=== PATIENT | male | born 1965 | race Caucasian/White ===

== ENCOUNTER 2020-09-24 19:44 | Inpatient (IN) | payer BC, OTHER ==
[~2020-09-24] VITALS: Ht 193 cm; Wt 227.2 kg
[~2020-09-24 19:44] MED LIST: AMLO10TA4; LISI40TA; NAPR-243 PO; TRM50T PO
[2020-09-24] MEDS ORDERED: LACTATED RINGERS 1,000 ML IV ONE ×3 (20:16→22:28)
[2020-09-24 20:19] LABS: ABG BASE EXCESS -1.6 MMOL/L (-2.5-2.5); ABG OXYGEN SATURATION 93 % (94-100); ABG PCO2 30 MMHG (35-45); ABG PH 7.47 (7.37-7.43); ABG PO2 77 MMHG (79-93)
[2020-09-24 20:20] LABS: ALLENS TEST YES-POS; INSPIRED O2 15L; PATIENT TEMP 102.7; VENTILATOR NO
--- NOTE | 2020-09-24 20:22 | ED Respiratory ---
General Chief Complaint: Respiratory Problems Stated Complaint: COVID-19;LOW O2 SAT Source: patient Exam Limitations: no limitations History of Present Illness Date Seen by Provider: Sep 24, 2020 Time Seen by Provider: 20:02 Initial Comments The patient presents to the ER by private conveyance from home with chief complaint of shortness of air and oxygen sats in the low 80s. He does not have a history of pulmonary disease nor does he ever smoke. He has no history of coronary disease or chest pain. No significant familial medical history. He does have diabetes on oral anti-hyperglycemics and hypertension but no evidence of anemia. He is known to Dr. Francis. He started having symptoms of shortness of air fever cough diarrhea body aches and loss of sense of taste and smell approximately 6 days ago. 4 days ago he was tested positive for COVID-19. He has no baseline supplemental oxygen requirements. Last stool was today large diarrhea. Allergies and Home Medications Allergies Coded Allergies: No Known Drug Allergies (Unverified Allergy, Mild, 08/09/09) Home Medications Naproxen 500 Mg Tablet, 1 EACH PO TID PRN FOR PAIN Prescribed by: BELA FERRERA on 08/09/09 1026 Tramadol Hcl 50 Mg Tablet, 1 TAB PO QID FOR PAIN Prescribed by: BELA FERRERA on 08/09/09 1026 Patient Home Medication List Home Medication List Reviewed: Yes Review of Systems Review of Systems Constitutional: chills, fever, malaise, weakness EENTM: No ear discharge, No ear pain Respiratory: cough; No phlegm; short of breath; No wheezing Cardiovascular: No chest pain, No edema, No Hx of Intervention, No palpitations Gastrointestinal: No abdominal pain, No constipation, No diarrhea, No nausea, No vomiting Genitourinary: No discharge, No dysuria; incontinence (physiologic due to shortness of air he has a hard time getting to the bathroom in time for the past week) Musculoskeletal: No back pain, No joint pain Skin: No change in color, No dryness Psychiatric/Neurological: Denies Anxiety, Denies Depressed All Other Systems Reviewed Negative Unless Noted: Yes Past Brnncvq-Cxefrs-Brlgoj Hx Patient Social History Alcohol Use: Denies Use Recreational Drug Use: No Smoking Status: Never a Smoker Physical Exam Vital Signs - First Documented 09/24/20 09/24/20 09/24/20 20:00 20:45 20:55 Temp 39.3 Pulse 107 Pulse Ox 97 O2 Delivery OxyMask O2 Flow Rate 15.00 Capillary Refill : Height: '" Weight: lbs. oz. kg; BMI Method: General Appearance: severe distress, obese Eyes: Bilateral Eye Normal Inspection, Bilateral Eye PERRL, Bilateral Eye EOMI HEENT: PERRL/EOMI, pharynx normal Neck: full range of motion, supple, normal inspection Respiratory: lungs clear, respiratory distress, decreased breath sounds, accessory muscle use Cardiovascular: normal peripheral pulses, regular rate, rhythm, tachycardia Gastrointestinal: normal bowel sounds, non tender, soft Extremities: normal range of motion, non-tender, normal capillary refill Neurologic/Psychiatric: alert, normal mood/affect, oriented x 3 Skin: normal color, other (psoriatic rashes throughout) Focused Exam Sepsis Stage: Severe Sepsis Possible Source: Pulmonary Lactate Level 09/24/20 20:25: Lactic Acid Level 2.29*H Time of Focused Exam: 21:30 Respiratory: Lungs Clear, No Accessory Muscle Use, Decreased Breath Sounds, Respiratory Distress (mild to moderate with oxygen saturations 98% on FiO2 of 0.7) Cardiovascular: Regular Rate, Rhythm, Normal Peripheral Pulses Capillary Refill: Less Than 3 Seconds Peripheral Pulses: 2+ Radial Pulses (R), 2+ Radial Pulses (L) Skin: warm/dry, other (baseline psoriatic plaques) Lactic Acid Level Laboratory Tests Test 09/24/20 20:25 Lactic Acid Level 2.29 MMOL/L (0.50-2.00) *H Within 3hrs of presentation: Admin fluids, Admin 30ml/kg IBW due to BMI>30 (gave between 10 and 20 mL/kg based on an adjusted ideal body weight 148 kg. Intentionally went below 20 mL/kg due to lack of evidence for bacterial pneumonia.), Admin ABX, Focus exam, Lactate level Progress/Results/Core Measures Suspected Sepsis SIRS Temperature: Pulse: Respiratory Rate: Laboratory Tests 09/24/20 20:25: White Blood Count 6.8 Blood Pressure / Mean: 09/24/20 20:25: Lactic Acid Level 2.29*H Laboratory Tests 09/24/20 20:25: Creatinine 1.14, INR Comment 1.0, Platelet Count 182, Total Bilirubin 0.5 Results/Orders Lab Results Laboratory Tests Test 09/24/20 20:08 09/24/20 20:25 Range/Units Blood Gas Puncture Site LEFT RADIAL Blood Gas Patient Temperature 102.7 Arterial Blood pH 7.47 H 7.37-7.43 Arterial Blood Partial Pressure CO2 30 L 35-45 MMHG Arterial Blood Partial Pressure O2 77 L 79-93 MMHG Arterial Blood HCO3 21 L 23-27 MMOL/L Arterial Blood Total CO2 22.0 21.0-31.0 MMOL/L Arterial Blood Oxygen Saturation 93 L 94-100 % Arterial Blood Base Excess -1.6 -2.5-2.5 MMOL/L Rashad Test YES-POS Blood Gas Ventilator Setting NO Blood Gas Inspired Oxygen 15L White Blood Count 6.8 4.3-11.0 10^3/uL Red Blood Count 5.08 4.30-5.52 10^6/uL Hemoglobin 14.0 13.3-17.7 g/dL Hematocrit 41 40-54 % Mean Corpuscular Volume 82 80-99 fL Mean Corpuscular Hemoglobin 28 25-34 pg Mean Corpuscular Hemoglobin Concent 34 32-36 g/dL Red Cell Distribution Width 14.4 10.0-14.5 % Platelet Count 182 130-400 10^3/uL Mean Platelet Volume 10.5 9.0-12.2 fL Immature Granulocyte % (Auto) 2 % Neutrophils (%) (Auto) 81 H 42-75 % Lymphocytes (%) (Auto) 11 L 12-44 % Monocytes (%) (Auto) 6 0-12 % Eosinophils (%) (Auto) 0 0-10 % Basophils (%) (Auto) 0 0-10 % Neutrophils # (Auto) 5.5 1.8-7.8 10^3/uL Lymphocytes # (Auto) 0.7 L 1.0-4.0 10^3/uL Monocytes # (Auto) 0.4 0.0-1.0 10^3/uL Eosinophils # (Auto) 0.0 0.0-0.3 10^3/uL Basophils # (Auto) 0.0 0.0-0.1 10^3/uL Immature Granulocyte # (Auto) 0.1 0.0-0.1 10^3/uL Prothrombin Time 13.8 12.2-14.7 SEC INR Comment 1.0 0.8-1.4 Activated Partial Thromboplast Time 35 24-35 SEC D-Dimer 0.83 H 0.00-0.49 UG/ML Sodium Level 128 L 135-145 MMOL/L Potassium Level 3.6 3.6-5.0 MMOL/L Chloride Level 92 L 98-107 MMOL/L Carbon Dioxide Level 22 21-32 MMOL/L Anion Gap 14 5-14 MMOL/L Blood Urea Nitrogen 13 7-18 MG/DL Creatinine 1.14 0.60-1.30 MG/DL Estimat Glomerular Filtration Rate > 60 BUN/Creatinine Ratio 11 Glucose Level 203 H 70-105 MG/DL Lactic Acid Level 2.29 *H 0.50-2.00 MMOL/L Calcium Level 7.8 L 8.5-10.1 MG/DL Corrected Calcium 8.2 L 8.5-10.1 MG/DL Total Bilirubin 0.5 0.1-1.0 MG/DL Aspartate Amino Transf (AST/SGOT) 38 H 5-34 U/L Alanine Aminotransferase (ALT/SGPT) 28 0-55 U/L Alkaline Phosphatase 36 L 40-136 U/L C-Reactive Protein High Sensitivity 14.83 H 0.00-0.50 MG/DL Total Protein 7.6 6.4-8.2 GM/DL Albumin 3.5 3.2-4.5 GM/DL Procalcitonin 0.15 H <0.10 NG/ML Micro Results Microbiology 09/24/20 Influenza Types A,B Antigen (ISABEL) - Final, Complete My Orders Orders - YESSY MATTHEW Arterial Blood Gas (09/24/20 20:11) Cbc With Automated Diff (09/24/20 20:16) Comprehensive Metabolic Panel (09/24/20 20:16) Blood Culture (09/24/20 20:16) Sputum Culture (09/24/20 20:16) Urinalysis (09/24/20 20:16) Urine Culture (09/24/20 20:16) Protime With Inr (09/24/20 20:16) Partial Thromboplastin Time (09/24/20 20:16) Chest 1 View, Ap/Pa Only (09/24/20 20:16) Ed Iv/Invasive Line Start (09/24/20 20:16) Ed Iv/Invasive Line Start (09/24/20 20:16) Vital Signs Adult Sepsis Patie Q15M (09/24/20 20:16) O2 (09/24/20 20:16) Remove Rings In Anticipation O (09/24/20 20:16) Lactic Acid Analyzer (09/24/20 20:16) Influenza A And B Antigens (09/24/20 20:16) Lactated Ringers (Lr 1000 Ml Iv Solution (09/24/20 20:16) Ed Iv/Invasive Line Start (09/24/20 20:16) Lactated Ringers (Lr 1000 Ml Iv Solution (09/24/20 20:16) Acetaminophen Tablet (Tylenol Tablet) (09/24/20 20:30) Covid-19 External Lab Results (09/24/20 20:16) Procalcitonin (Pct) (09/24/20 20:22) Hs C Reactive Protein (09/24/20 20:22) Fibrin Degradation Products (09/24/20 20:22) Dexamethasone Injection (Decadron Injec (09/24/20 20:30) Medications Given in ED Current Medications Medications Dose Ordered Sig/Raffaele Route Start Time Stop Time Status Last Admin Dose Admin Acetaminophen 1,000 mg ONCE ONCE PO 09/24/20 20:30 09/24/20 20:31 DC 09/24/20 20:34 1,000 MG Dexamethasone Sodium Phosphate 10 mg ONCE ONCE IV 09/24/20 20:30 09/24/20 20:31 DC 09/24/20 20:34 10 MG Lactated Ringer's 1,000 ml @ 0 mls/hr Q0M ONCE IV 09/24/20 20:16 09/24/20 20:20 DC 09/24/20 20:34 999 MLS/HR Lactated Ringer's 1,000 ml @ 0 mls/hr Q0M ONCE IV 09/24/20 20:16 09/24/20 20:20 DC 09/24/20 20:34 999 MLS/HR Vital Signs/I&O 09/24/20 09/24/20 09/24/20 20:00 20:45 20:55 Temp 39.3 Pulse 107 B/P (MAP) Pulse Ox 97 97 O2 Delivery OxyMask NIV CPAP O2 Flow Rate 15.00 60.00 Capillary Refill : Progress Note #1: Time: 20:21 Progress Note Immediately on arrival he had evidence of shortness of air and increased work of breathing and an oxygen saturation of 70% on room air. Putting him on a simple mask at flush brought him up to 95-96% and improved his work of breathing. We'll get an ABG which will help guide if CPAP or BiPAP will be helpful. Based on an adjusted ideal body weight of 148 kg with a stated weight of 530 pounds and 6 foot 4 we would give him 2 L of lactated Ringer's to start. If he does not have evidence of bacterial infection then it would be ideal not to overload him with fluids and this would be between 10 and 20 milliliters per kilogram. Plan to get a d-dimer and put him on prophylactic Lovenox if his kidney function is okay. Plan to get a pro calcitonin and CRP to help us decide if this looks bacterial. We will obtain influenza swab, chest x-ray and otherwise septic workup with modified IV fluids for reasons stated above. Unless we find evidence of bacterial infection we will not treat him with antibiotics. Progress Note #2: Time: 21:31 Progress Note Elevated markers of inflammation but no significant white count. Plan to hold IV antibiotics for now. Diagnostic Imaging Diagonstic Imaging: Xray Plain Films/CT/US/NM/MRI: chest (1v) Comments bilateral patchy infiltrates consistent with viral COVID-19 pneumonia. [facility] [place], [place] NAME: SARAH ZELAYA [facility] REC#: [id number] PT STATUS: REG ER : 1965 PHYSICIAN: YESSY MATTHEW MD ADMIT DATE: 09/24/20/ER Draft Date of Exam:09/24/20 CHEST 1 VIEW, AP/PA ONLY INDICATION: COVID positive, low oxygen saturation, sepsis. TECHNIQUE: Single view chest 8:30 PM. CORRELATION STUDY: None FINDINGS: Heart size is enlarged, mediastinum is prominent. Prominent bilateral pulmonary opacities are present most compatible with likely multilobe pneumonia. Edema could also account for this. Findings appear most pronounced in the mid and lower lung hutchinson. IMPRESSION: 1. Bilateral pulmonary opacities favor likely multilobe pneumonia including that seen with COVID. Dictated on workstation # [id number] Dict: 09/24/202045 Trans: 09/24/202101 [facility] [id number] Interpreted by: YOSEPH,PILAR K DO Electronically signed by: Reviewed: Reviewed by Me Departure Communication (Admissions) Time/Spoke to Admitting Phy: 21:20 Patient case discussed with Dr. Granado and she agrees to admit him to the ICU on CPAP, steroids and Lovenox. Impression Primary Impression: Severe acute respiratory syndrome coronavirus 2 (SARS-CoV-2) detected Additional Impressions: Acute respiratory failure with hypoxemia Severe sepsis Disposition: ADMITTED INPATIENT Condition: Stable Admissions Decision to Admit Reason: Admit from ER (General) Decision to Admit/Date: Sep 24, 2020 Time/Decision to Admit Time: 20:00 Departure-Patient Inst. Referrals: NO,LOCAL PHYSICIAN (PCP/Family) Primary Care Physician YESSY MATTHEW Sep 24, 2020 20:22
[2020-09-24] MEDS ORDERED: ACETAMINOPHEN 500 MG TAB (TYLENOL) PO ONE (20:30)
[2020-09-24 20:37] LABS: BASOPHILS % (AUTO) 0 % (0-10); EOSINOPHILS % (AUTO) 0 % (0-10); HEMATOCRIT 41 % (40-54); LYMPHOCYTES # (AUTO) 0.7 10^3/uL (1.0-4.0); LYMPHOCYTES % (AUTO) 11 % (12-44); MEAN CORPUSCULAR HEMOGLOBIN 28 pg (25-34); MEAN CORPUSCULAR HGB CONC 34 g/dL (32-36); MEAN CORPUSCULAR VOLUME 82 fL (80-99); MEAN PLATELET VOLUME 10.5 fL (9.0-12.2); MONOCYTES # (AUTO) 0.4 10^3/uL (0.0-1.0); MONOCYTES % (AUTO) 6 % (0-12); NEUTROPHILS # (AUTO) 5.5 10^3/uL (1.8-7.8); NEUTROPHILS % (AUTO) 81 % (42-75); PLATELET COUNT 182 10^3/uL (130-400); WHITE BLOOD COUNT 6.8 10^3/uL (4.3-11.0)
[2020-09-24 20:51] LABS: ALBUMIN 3.5 GM/DL (3.2-4.5); CHLORIDE 92 MMOL/L (98-107); POTASSIUM 3.6 MMOL/L (3.6-5.0); SODIUM 128 MMOL/L (135-145)
[2020-09-24 20:53] LABS: CALCIUM 7.8 MG/DL (8.5-10.1)
[2020-09-24 20:54] LABS: FIBRIN DEGRADATION PRODUCTS 0.83 UG/ML (0.00-0.49); GLUCOSE 203 MG/DL (70-105); PROTHROMBIN TIME PATIENT 13.8 SEC (12.2-14.7); TOTAL PROTEIN 7.6 GM/DL (6.4-8.2)
[2020-09-24 20:55] LABS: CARBON DIOXIDE 22 MMOL/L (21-32)
[2020-09-24 20:56] LABS: BILIRUBIN,TOTAL 0.5 MG/DL (0.1-1.0)
[2020-09-24 20:57] LABS: ALKALINE PHOSPHATASE 36 U/L (40-136)
[2020-09-24 20:58] LABS: CREATININE SERUM 1.14 MG/DL (0.60-1.30); GFR ESTIMATED > 60
[2020-09-24 20:59] LABS: BUN/CREATININE RATIO 11
[2020-09-24 21:01] LABS: ALANINE AMINOTRANSFERASE 28 U/L (0-55)
--- NOTE | 2020-09-24 21:02 | Diagnostic Imaging Report ---
INDICATION: COVID positive, low oxygen saturation, sepsis. TECHNIQUE: Single view chest 8:30 PM. CORRELATION STUDY: None FINDINGS: Heart size is enlarged, mediastinum is prominent. Prominent bilateral pulmonary opacities are present most compatible with likely multilobe pneumonia. Edema could also account for this. Findings appear most pronounced in the mid and lower lung hutchinson. IMPRESSION: 1. Bilateral pulmonary opacities favor likely multilobe pneumonia including that seen with COVID. Dictated by: Dictated on workstation # [id number]
[2020-09-24] MEDS ORDERED: ACETAMINOPHEN 500 MG TAB (TYLENOL) PO PRN (23:00)
[2020-09-24] MEDS ORDERED: LACTATED RINGERS 1,000 ML IV SCH (23:00)
[2020-09-24] MEDS ORDERED: ONDANSETRON 4 MG/2 ML (SDV) Z0FRAN IV PRN (23:00)
[2020-09-24] MEDS ORDERED: IBUPROFEN 800 MG (MOTRIN) TAB PO PRN (23:00)
[2020-09-24 23:03] VITALS: BP 121/69
[2020-09-24] MEDS ORDERED: VASOPRESSIN 20 UNITS/NS 100 ML DRIP IV SCH ×2 (23:15)
[2020-09-24] MEDS ORDERED: RT-ALBUTEROL INHALER HFA (VENTOLIN HFA) 18 GM IH PRN (23:15)
[2020-09-24] MEDS: EPINEPHrine 1 MG INJECTION 4 MG in NS (IVPB) 246 ML IV SCH (23:16)
[2020-09-24] MEDS: NOREPINEPHRINE 4 MG/250 ML 250 ML IV SCH (23:16)
[2020-09-24 23:19] LABS: ABG BASE EXCESS -0.7 MMOL/L (-2.5-2.5); ABG OXYGEN SATURATION 98 % (94-100); ABG PCO2 33 MMHG (35-45); ABG PH 7.45 (7.37-7.43); ABG PO2 111 MMHG (79-93); ABG TCO2 23.8 MMOL/L (21.0-31.0)
[2020-09-24 23:20] LABS: ALLENS TEST YES-POS; INSPIRED O2 60%; VENTILATOR NO
[2020-09-25] MEDS: RT-ALBUTEROL INHALER HFA (VENTOLIN HFA) 18 GM IH SCH ×3 (02:12→19:42)
[2020-09-25] MEDS: EPINEPHrine 1 MG INJECTION 4 MG in NS (IVPB) 246 ML IV SCH ×8 (02:26→23:40)
[2020-09-25] MEDS: NOREPINEPHRINE 4 MG/250 ML 250 ML IV SCH ×8 (02:26→23:40)
[2020-09-25 03:18] LABS: BASOPHILS % (AUTO) 0 % (0-10); EOSINOPHILS % (AUTO) 0 % (0-10); HEMATOCRIT 42 % (40-54); HEMOGLOBIN 13.7 g/dL (13.3-17.7); LYMPHOCYTES # (AUTO) 0.5 10^3/uL (1.0-4.0); LYMPHOCYTES % (AUTO) 7 % (12-44); MEAN CORPUSCULAR HEMOGLOBIN 27 pg (25-34); MEAN CORPUSCULAR HGB CONC 33 g/dL (32-36); MEAN CORPUSCULAR VOLUME 82 fL (80-99); MEAN PLATELET VOLUME 10.8 fL (9.0-12.2); MONOCYTES # (AUTO) 0.4 10^3/uL (0.0-1.0); MONOCYTES % (AUTO) 5 % (0-12); NEUTROPHILS % (AUTO) 87 % (42-75); PLATELET COUNT 158 10^3/uL (130-400)
[2020-09-25 03:30] LABS: ALBUMIN 3.2 GM/DL (3.2-4.5)
[2020-09-25 03:31] LABS: CHLORIDE 99 MMOL/L (98-107); POTASSIUM 4.3 MMOL/L (3.6-5.0); SODIUM 128 MMOL/L (135-145)
[2020-09-25 03:32] LABS: CALCIUM 7.8 MG/DL (8.5-10.1)
[2020-09-25 03:33] LABS: GLUCOSE 252 MG/DL (70-105); TOTAL PROTEIN 7.4 GM/DL (6.4-8.2)
[2020-09-25 03:34] LABS: CARBON DIOXIDE 16 MMOL/L (21-32)
[2020-09-25 03:35] LABS: BILIRUBIN,TOTAL 0.3 MG/DL (0.1-1.0)
[2020-09-25 03:36] LABS: ALKALINE PHOSPHATASE 35 U/L (40-136)
[2020-09-25 03:37] LABS: CREATININE SERUM 0.93 MG/DL (0.60-1.30); GFR ESTIMATED > 60
[2020-09-25 03:38] LABS: BUN/CREATININE RATIO 14
[2020-09-25 03:40] LABS: ALANINE AMINOTRANSFERASE 28 U/L (0-55); MAGNESIUM 2.1 MG/DL (1.6-2.4)
--- NOTE | 2020-09-25 04:12 | Pulmonary Consultation ---
History of Present Illness History of Present Illness Date Seen by Provider: Sep 25, 2020 Time Seen by Provider: 04:07 Date of Admission History of Present Illness The patient presents to the ER by private conveyance from home with chief complaint of shortness of air and oxygen sats in the low 80s. He does not have a history of pulmonary disease nor does he ever smoke. He has no history of coronary disease or chest pain. No significant familial medical history. He does have diabetes on oral anti-hyperglycemics and hypertension but no evidence of anemia. He is known to Dr. Francis. He started having symptoms of shortness of air fever cough diarrhea body aches and loss of sense of taste and smell approximately 6 days ago. 4 days ago he was tested positive for COVID-19. He has no baseline supplemental oxygen requirements. Last stool was today large diarrhea. Allergies and Home Medications Allergies Coded Allergies: No Known Drug Allergies (Unverified , 08/09/09) Home Medications Naproxen 500 Mg Tablet, 1 EACH PO TID PRN FOR PAIN Prescribed by: BELA FERRERA on 08/09/09 1026 Tramadol Hcl 50 Mg Tablet, 1 TAB PO QID FOR PAIN Prescribed by: BELA FERRREA on 08/09/09 1026 Past Trwzjij-Cszlft-Qckaku Hx Patient Social History Alcohol Use: Denies Use Recreational Drug Use: No Smoking Status: Never a Smoker Recent Foreign Travel: No Contact w/Someone Who Travel: No Recent Infectious Disease Expo: Yes Immunizations Up To Date Date of Influenza Vaccine: Aug 08, 2019 Past Medical History Respiratory: No Cardiac: Yes Hypertension Neurological: No Genitourinary: No Gastrointestinal: No Musculoskeletal: No Endocrine: Yes (MORBID OBESITY) Diabetes, Non-Insulin dep Cancer: No Psychosocial: No Integumentary: No Sepsis Event Evaluation Height, Weight, BMI Height: '" Weight: lbs. oz. kg; 58.22 BMI Method: Exam Exam Vital Signs Date Time Temp Pulse Resp B/P (MAP) Pulse Ox O2 Delivery O2 Flow Rate FiO2 09/25/20 02:12 62 93 60.00 09/24/20 23:37 NIV CPAP 60 09/24/20 23:03 107 97 09/24/20 22:36 89 09/24/20 22:20 37.0 09/24/20 22:13 39.3 97 18 121/69 (78) 97 NIV CPAP 09/24/20 20:55 39.3 107 97 NIV CPAP 09/24/20 20:45 97 60.00 09/24/20 20:00 39.3 111 22 113/61 (78) Room Air 09/24/20 20:00 OxyMask 15.00 I & O 09/25/20 07:00 Intake Total 2000 ml Balance 2000 ml Height & Weight Height: '" Weight: lbs. oz. kg; 58.22 BMI Method: Respiratory: Lungs Clear, No Accessory Muscle Use, Decreased Breath Sounds, Respiratory Distress (mild to moderate with oxygen saturations 98% on FiO2 of 0.7) Cardiovascular: Regular Rate, Rhythm, Normal Peripheral Pulses Capillary Refill: Less Than 3 Seconds Peripheral Pulses: 2+ Radial Pulses (R), 2+ Radial Pulses (L) Gastrointestinal: normal bowel sounds, non tender, soft Results Lab Laboratory Tests 09/24/20 20:25 09/25/20 02:59 Assessment/Plan Assessment/Plan Acute respiratory failure -Currently requiring BiPAP with 60% Fi02 COVID19 PNA with ARDS Pa02/Fi02 = 185 -Dx on 09/20 -Symptoms started on 09/18 -Will start Remdesivir, and CVP -Decadroon Hyponatremia -change to NS at 150 Severe morbid obesity DM II -SSI HTN -Monitor JUSTINA MORENO DO Sep 25, 2020 04:12
[2020-09-25] MEDS ORDERED: REMDESIVIR INJ 200 MG in NS (IVPB) 210 ML IV ONE (04:30)
[2020-09-25] MEDS: KCL 20 MEQ TAB (K-DUR) PO SCH (04:42)
[2020-09-25] MEDS: POTASSIUM CL 10MEQ/50ML IVPB 50 ML IV SCH (04:42)
[2020-09-25] MEDS: MAGNESIUM 1 GM/100 ML IVPB 100 ML IV SCH (04:42)
[2020-09-25] MEDS: NS IV 1000 ML 1,000 ML IV SCH ×4 (05:32→22:10)
[2020-09-25] MEDS: inSUlin ASPART (NovoLOG) 1 UNIT/0.01 ML (CHARGE PER UNIT) IV SCH ×4 (05:33→20:47)
[2020-09-25] MEDS ORDERED: inSUlin ASPART (NovoLOG) 1 UNIT/0.01 ML (CHARGE PER UNIT) SC SCH (06:00)
[2020-09-25] MEDS ORDERED: REMDESIVIR INJ 200 MG in NS (IVPB) 210 ML IV NR (08:00)
[2020-09-25] MEDS ORDERED: REMDESIVIR INJ 100 MG in NS (IVPB) 230 ML IV SCH (08:00)
[2020-09-25] MEDS: ENOXAPARIN 60 MG/0.6 ML (LOVENOX) SYR SC SCH ×2 (09:45→20:49)
[2020-09-25] MEDS: PANTOPRAZOLE 40 MG (PROTONIX) VIAL IV SCH (09:46)
[2020-09-25 13:13] VITALS: BP 124/68
[2020-09-25 13:26] VITALS: BP 123/67
[2020-09-25 13:35] VITALS: BP 118/60
[2020-09-25 15:01] VITALS: BP 124/65
[2020-09-25] MEDS ORDERED: GLIP5TAB13 PO (15:19)
[2020-09-25] MEDS ORDERED: AMLO-250 PO (15:19)
[2020-09-25] MEDS ORDERED: ACET-2267 PO (15:19)
[2020-09-25] MEDS ORDERED: METF-399 PO (15:19)
[2020-09-25] MEDS ORDERED: LISI1TAB46 PO (15:19)
--- NOTE | 2020-09-25 15:21 | NUR ---
SPOKE WITH THE PT (CALLED THE ROOM PHONE) AND WENT THRU THE EXT MED HISTORY TO COMPLETE THE MED REC ALLOPURINOL 300MG IS LISTED ON THE EXT MED HISTORY (FILLED MAY 2020 #30) BUT THE PT IS NO LONGER TAKING ALL OTHER MEDICATIONS THE PT WAS ABLE TO TELL ME WHEN/HOW HE TAKES EACH OTC MEDS: TYLENOL
[2020-09-25 19:42] VITALS: BP 125/69
[2020-09-26 02:25] VITALS: BP 142/75
[2020-09-26] MEDS: RT-ALBUTEROL INHALER HFA (VENTOLIN HFA) 18 GM IH SCH ×4 (02:25→23:30)
[2020-09-26] MEDS: EPINEPHrine 1 MG INJECTION 4 MG in NS (IVPB) 246 ML IV SCH ×7 (02:36→21:14)
[2020-09-26] MEDS: NOREPINEPHRINE 4 MG/250 ML 250 ML IV SCH ×7 (02:37→21:14)
[2020-09-26 02:48] LABS: BASOPHILS % (AUTO) 0 % (0-10); EOSINOPHILS % (AUTO) 0 % (0-10); HEMATOCRIT 41 % (40-54); HEMOGLOBIN 13.4 g/dL (13.3-17.7); LYMPHOCYTES # (AUTO) 0.4 10^3/uL (1.0-4.0); LYMPHOCYTES % (AUTO) 4 % (12-44); MEAN CORPUSCULAR HEMOGLOBIN 27 pg (25-34); MEAN CORPUSCULAR HGB CONC 32 g/dL (32-36); MEAN CORPUSCULAR VOLUME 84 fL (80-99); MEAN PLATELET VOLUME 11.1 fL (9.0-12.2); MONOCYTES # (AUTO) 0.4 10^3/uL (0.0-1.0); MONOCYTES % (AUTO) 4 % (0-12); NEUTROPHILS # (AUTO) 9.3 10^3/uL (1.8-7.8); NEUTROPHILS % (AUTO) 89 % (42-75); PLATELET COUNT 194 10^3/uL (130-400); WHITE BLOOD COUNT 10.4 10^3/uL (4.3-11.0)
[2020-09-26 03:15] LABS: ALANINE AMINOTRANSFERASE 26 U/L (0-55); ALBUMIN 3.1 GM/DL (3.2-4.5); ALKALINE PHOSPHATASE 40 U/L (40-136); BILIRUBIN,TOTAL 0.4 MG/DL (0.1-1.0); BUN/CREATININE RATIO 19; CARBON DIOXIDE 20 MMOL/L (21-32); CHLORIDE 101 MMOL/L (98-107); CREATININE SERUM 0.91 MG/DL (0.60-1.30); GFR ESTIMATED > 60; GLUCOSE 206 MG/DL (70-105); MAGNESIUM 1.9 MG/DL (1.6-2.4); POTASSIUM 3.9 MMOL/L (3.6-5.0); SODIUM 136 MMOL/L (135-145); TOTAL PROTEIN 6.8 GM/DL (6.4-8.2)
[2020-09-26 03:33] LABS: ABG BASE EXCESS -2.3 MMOL/L (-2.5-2.5); ABG OXYGEN SATURATION 89 % (94-100); ABG PCO2 41 MMHG (35-45); ABG PH 7.35 (7.37-7.43); ABG PO2 63 MMHG (79-93); ABG TCO2 23.7 MMOL/L (21.0-31.0)
[2020-09-26 03:49] LABS: ALLENS TEST POS
[2020-09-26 03:50] LABS: INSPIRED O2 80%; PATIENT TEMP 36.8; VENTILATOR NO
--- NOTE | 2020-09-26 03:52 | Pulmonary Progress Note ---
Subjective Time Seen by a Provider: 03:47 Subjective/Events-last exam Currently on BiPAP. He states he feels a little better. Sepsis Event Evaluation Height, Weight, BMI Height: '" Weight: lbs. oz. kg; 58.22 BMI Method: Focused Exam Lactate Level 09/24/20 20:25: Lactic Acid Level 2.29*H 09/24/20 22:45: Lactic Acid Level 1.35 09/25/20 04:53: Lactic Acid Level 0.98 Time of Focused Exam: 21:30 Exam Exam Vital Signs Date Time Temp Pulse Resp B/P (MAP) Pulse Ox O2 Delivery O2 Flow Rate FiO2 09/26/20 03:00 85 29 138/73 93 NIV CPAP 100.00 09/26/20 02:40 NIV CPAP 100.00 09/26/20 02:25 77 26 93 80.00 09/26/20 02:00 87 31 142/75 92 NIV CPAP 80.00 09/26/20 01:00 90 09/26/20 01:00 85 33 141/73 NIV CPAP 80.00 09/26/20 00:00 91 26 150/73 NIV CPAP 80.00 09/25/20 23:00 101 24 157/83 NIV CPAP 80.00 09/25/20 22:09 37.1 09/25/20 22:00 113 31 185/84 94 NIV CPAP 80.00 09/25/20 21:07 38.8 09/25/20 21:00 107 20 179/78 93 NIV CPAP 80.00 09/25/20 20:23 37.8 106 16 91 NIV Bilevel 80.00 09/25/20 19:42 102 14 91 80.00 09/25/20 19:42 NIV CPAP 80.00 09/25/20 19:00 102 09/25/20 19:00 105 15 113/85 92 NIV CPAP 60.00 09/25/20 15:43 90 14 110/57 91 NIV CPAP 60.00 09/25/20 15:01 92 30 90 60.00 09/25/20 13:35 36.6 80 26 118/60 93 NIV Bilevel 60 09/25/20 13:26 36.9 82 47 123/67 90 NIV Bilevel 60 09/25/20 13:13 36.8 82 35 124/68 92 NIV Bilevel 60 09/25/20 13:00 81 17 124/68 94 NIV CPAP 60.00 09/25/20 12:27 82 09/25/20 12:00 85 33 131/73 95 NIV CPAP 60.00 09/25/20 12:00 36.0 82 09/25/20 11:00 79 124/72 NIV CPAP 60.00 09/25/20 10:00 80 32 126/73 93 NIV CPAP 60.00 09/25/20 09:00 80 29 120/69 90 NIV CPAP 60.00 09/25/20 08:00 36.6 81 30 127/71 93 09/25/20 08:00 81 13 138/76 95 NIV CPAP 60.00 09/25/20 07:59 81 09/25/20 07:00 73 20 132/69 95 NIV CPAP 60.00 09/25/20 05:00 76 14 132/75 95 NIV CPAP 60.00 09/25/20 04:00 65 23 127/68 97 NIV CPAP 60.00 I & O 09/26/20 07:00 Intake Total 1825 ml Output Total 2650 ml Balance -825 ml Height & Weight Height: '" Weight: lbs. oz. kg; 58.22 BMI Method: General Appearance: No Apparent Distress HEENT: PERRL/EOMI, Pharynx Normal Neck: Non Tender, Supple Respiratory: No Accessory Muscle Use, Decreased Breath Sounds Cardiovascular: Regular Rate, Rhythm, Normal Peripheral Pulses Capillary Refill: Less Than 3 Seconds Peripheral Pulses: 2+ Radial Pulses (R), 2+ Radial Pulses (L) Gastrointestinal: normal bowel sounds, non tender, soft Extremity: Normal Capillary Refill Neurologic/Psychiatric: Alert, Oriented x3 Skin: Normal Color, Warm/Dry Lymphatic: No Adenopathy Results Lab Laboratory Tests 09/24/20 20:25 09/25/20 02:59 09/26/20 02:10 Assessment/Plan Assessment/Plan Acute respiratory failure with ARDS secondary to COVID -Currently requiring BiPAP with 100% Fi02. Pt has no reserve -Pt will most likely need intubation -Repeat CXR, and BNP COVID19 PNA with ARDS Pa02/Fi02 = 185 -Dx on 09/20 -Symptoms started on 09/18 - Remdesivir, and CVP -Decadron Episode of nonsustained VTach yesterday -Cardiology is consulted. -Troponins are negative Hyponatremia -change to NS at 150 Severe morbid obesity DM II -SSI HTN -Monitor GI/DVT ppx -Theraputic dose lovenox currently -Protonix JUSTINA MORENO DO Sep 26, 2020 03:52
[2020-09-26] MEDS: NS IV 1000 ML 1,000 ML IV SCH ×3 (04:26→21:14)
[2020-09-26] MEDS ORDERED: REMDESIVIR INJ 100 MG in NS (IVPB) 230 ML IV SCH (04:30)
[2020-09-26] MEDS: KCL 20 MEQ TAB (K-DUR) PO SCH (04:32)
[2020-09-26] MEDS: POTASSIUM CL 10MEQ/50ML IVPB 50 ML IV SCH (04:32)
[2020-09-26] MEDS: MAGNESIUM 1 GM/100 ML IVPB 100 ML IV SCH ×2 (04:32→17:34)
[2020-09-26 04:41] LABS: BILIRUBIN,URINE 1+ (NEGATIVE); CLARITY,URINE CLEAR; COLOR,URINE ORANGE; GLUCOSE, URINE (UA) NEGATIVE (NEGATIVE); KETONES,URINE 1+ (NEGATIVE); LEUKOCYTE ESTERASE ,URINE NEGATIVE (NEGATIVE); NITRITE,URINE NEGATIVE (NEGATIVE); PROTEIN,URINE 2+ (NEGATIVE)
[2020-09-26 05:15] VITALS: BP 129/80
[2020-09-26 05:33] LABS: AMORPHOUS SEDIMENT,UR FEW AMOR URATES /LPF; BACTERIA,URINE NEGATIVE /HPF; RBC,URINE >100 /HPF
[2020-09-26] MEDS ORDERED: MAGNESIUM 1 GM/100 ML IVPB 100 ML IV SCH (06:00)
[2020-09-26] MEDS ORDERED: POTASSIUM CL 10MEQ/50ML IVPB 50 ML IV SCH (06:00)
[2020-09-26] MEDS ORDERED: KCL 20 MEQ TAB (K-DUR) PO SCH (06:00)
[2020-09-26] MEDS: inSUlin ASPART (NovoLOG) 1 UNIT/0.01 ML (CHARGE PER UNIT) IV SCH ×4 (06:06→21:14)
--- NOTE | 2020-09-26 06:39 | Diagnostic Imaging Report ---
Indication: Respiratory failure. COMPARISON: 09/24/2020 FINDINGS: 2 frontal radiograph views chest were obtained and again demonstrate diffuse patchy and confluent bilateral infiltrates. Overall, infiltrates have progressed when compared to prior exam. There is no large effusion or pneumothorax. Cardiac silhouette is heavily obscured, but does appear enlarged. Right upper extremity PICC line is seen with tip in the right atrium. Osseous structures show no adverse interval change. IMPRESSION: 1. Interval progression of bilateral diffuse infiltrates. 2. Cardiomegaly. Dictated by: Dictated on workstation # [id number]
[2020-09-26 07:44] VITALS: BP 138/75
[2020-09-26 08:05] LABS: BAND NEUTROPHILS 3 %; BASOPHILS % (MANUAL) 0 %; EOSINOPHILS % (MANUAL) 0 %; LYMPHOCYTES % (MANUAL) 2 %; MONOCYTES % (MANUAL) 3 %; NEUTROPHILS % (MANUAL) 92 %
[2020-09-26 08:06] LABS: RBC MORPH NORMAL
[2020-09-26] MEDS: PANTOPRAZOLE 40 MG (PROTONIX) VIAL IV SCH (08:15)
[2020-09-26] MEDS: REMDESIVIR INJ 100 MG in NS (IVPB) 230 ML IV SCH (08:15)
[2020-09-26] MEDS: BENZONATATE 100 MG (TESSALON) CAPSULE PO SCH ×3 (08:16→21:13)
[2020-09-26] MEDS: ENOXAPARIN 60 MG/0.6 ML (LOVENOX) SYR SC SCH ×2 (08:16→21:15)
[2020-09-26 08:34] LABS: ABG BASE EXCESS -1.2 MMOL/L (-2.5-2.5); ABG OXYGEN SATURATION 91 % (94-100); ABG PCO2 39 MMHG (35-45); ABG PH 7.39 (7.37-7.43); ABG PO2 61 MMHG (79-93); ABG TCO2 24.3 MMOL/L (21.0-31.0); ALLENS TEST YES-POS; INSPIRED O2 BIPAP 100%; VENTILATOR NO
[2020-09-26 08:35] LABS: PATIENT TEMP 97.1
[2020-09-26] MEDS ORDERED: meTOprolol 5 MG/5 ML (LOPRESSOR) VIAL ONE (09:43)
[2020-09-26 14:30] VITALS: BP 162/77
--- NOTE | 2020-09-26 17:45 | NUR ---
Pt took bipap off to take a drink of water and sats immediately dropped into the 50's within 30 seconds. This RN placed pt back on bipap and pt took approx. 5 minutes to get sats back up into the 80's. This RN talked with the pt and explained how it might be time to think about ventilation due to his respiratory status at this time. Pt refused intubation stating "not yet". This RN asked pt if he should become worse or not able to respond, would he be ok with intubation at that time. Pt stated yes. This RN asked Nathaly Elena RN, to witness pt's wishes at this time.
--- NOTE | 2020-09-26 17:48 | Physician Query Clarification ---
"Physician Query-General Query to Physician: The medical record reflects the following clinical scenario: History/Risk factors: Covid 19, DM Clinical Findings: HR 107 Temp 39.3 LA 2.29 Covid 19 infection, Need for Bipap and 100 % FiO2 Treatment: IV Fluid Bolus, IV ABX, IV Steroids, Remdesivir Question: Do you agree with the impression of Severe sepsis per Dr. Estefania Atkinson? If you agree, please document in Progress Notes or Discharge Summary. 1. Yes; will document Severe Sepsis due to Covid 19 present on admission in the Progress Notes 2. No; will continue to document Covid 19 in the Progress Notes 3. Other; will document explanation of clinical findings 4. Clinically undetermined; no explanation for clinical findings Please remember a lack of response to the above will prompt a phone page by CDI/coding staff. In responding to this query, please exercise your independent professional judgment. The purpose of this communication is to more accurately reflect the complexity of your patients condition. The fact that a question is asked does not imply that any particular answer is desired or expected. Thank you for timely response to this clarification. Megha Wood, MSN, RN RN Specialist-Clinical Doc Improvement CD -Health Info Mgmt Operations [address] [facility] t: [phone] | f: [phone] If you are unable to reach me at my extension, I may be working from home. Please contact me at [phone] PHYSICIAN RESPONSE: Based on the clinical findings in the record, please respond to the query above on this document as an addendum. Physician Response: Physician Response 2 If you have questions please contact: Debug Technician: Ext: Thank you for your time and cooperation. Clinical Sound Engineer Audio Control/Debug Technician This is a permanent part of the medical record MEGHA WOOD Sep 26, 2020 17:48 MARIANELA KIMBALL MD Oct 07, 2020 12:42"
--- NOTE | 2020-09-26 17:50 | Consultation-Cardiology ---
HPI-Cardiology Cardiology Consultation: Date of Consultation 09/26/20 Date of Admission Attending Physician Pam Granado MD Admitting Physician Jorge Francis MD Consulting Physician Jeyson ORNELAS MD HPI: Time Seen by a Provider: 13:50 Chief Complaint: Nonsustained ventricular tachycardia This is a 55-year-old gentleman with significant obesity. He has history of diabetes and hypertension. He presents with COVID pneumonia and has hypoxia, treated with BiPAP therapy. Nonsmoker. He was noted to have 7 beat run of nonsustained ventricular tachycardia. The nurse called me and we started the patient on a beta reza. No further episode of nonsustained VT today. Review of Systems-Cardiology Review of Systems Constitutional: As described under HPI; No As described under HPI, No no symptoms reported, No chills, No fever, No lightheadedness Eyes: No As described under HPI, No no symptoms reported, No blindness, No blurred vision, No contact lenses, No drainage, No decreased acuity, No foreign body sensation, No pain, No vision change Ears/Nose/Throat: No As described under HPI, No no symptoms reported, No chronic hearing loss, No ear discharge, No ear pain, No nasal drainage, No ulcerations Respiratory: No no symptoms reported; As described under HPI; No As described under HPI, No cough; orthopnea, shortness of breath; No SOB with excertion Cardiovascular: No no symptoms reported; As described under HPI; No As described under HPI, No chest pain, No edema, No irregular heart rate, No lightheadedness, No palpitations Gastrointestinal: No no symptoms reported, No As described under HPI, No abdomen distended, No abdominal pain, No blood streaked bowels, No constipation, No diarrhea, No nausea, No vomiting, No stool coloration changes Genitourinary: No As described under HPI, No burning, No dysuria, No discharge, No frequency, No flank pain, No hematuria, No urgency Skin: No rash, No skin related problems, No ulcerations Psychiatric/Neurological: No anxiety, No depression, No seizure, No focal weakness, No syncope Hematologic: No bleeding abnormalities All Other Systems Reviewed Negative Unless Noted: Yes [id number]-Eeohuv Hx Patient Social History Alcohol Use: Denies Use Recreational Drug Use: No Smoking Status: Never a Smoker Recent Foreign Travel: No Recent Infectious Disease Expo: Yes Immunizations Up To Date Date of Influenza Vaccine: Aug 08, 2019 Past Medical History PMH As described under Assessment. Allergies and Home Medications Allergies Coded Allergies: No Known Drug Allergies (Unverified , 08/09/09) Home Medications Acetaminophen 500 Mg Tablet, 1,000 MG PO Q8H PRN for PAIN-MILD (1-4) OR TEMPATURE, (Reported) Amlodipine Besylate 5 Mg Tablet, 5 MG PO DAILY, (Reported) Glipizide 5 Mg Tablet, 5 MG PO DAILY, (Reported) Lisinopril/Hydrochlorothiazide 1 Each Tablet, 2 EA PO DAILY, (Reported) TAKES 2 (20/12.5MG)TABS Metformin HCl 1,000 Mg Tablet, 1,000 MG PO BID, (Reported) Patient Home Medication List Home Medication List Reviewed: Yes Physical Exam-Cardiology Physical Exam Vital Signs/I&O 09/26/20 09/26/20 09/26/20 09/26/20 06:00 07:00 07:36 07:44 Pulse 87 79 64 72 Resp 23 34 28 B/P (MAP) 138/75 138/75 Pulse Ox 89 77 85 O2 Delivery NIV CPAP NIV CPAP O2 Flow Rate 100.00 100.00 100.00 09/26/20 09/26/20 09/26/20 09/26/20 08:00 09:00 10:00 11:00 Pulse 65 75 69 75 Resp 32 32 32 37 B/P (MAP) 131/66 145/66 141/72 130/73 Pulse Ox 78 89 91 90 O2 Delivery NIV CPAP NIV CPAP NIV CPAP NIV CPAP O2 Flow Rate 100.00 100.00 100.00 100.00 09/26/20 09/26/20 09/26/20 09/26/20 11:16 12:00 13:00 13:29 Temp 36.2 Pulse 77 77 75 Resp 26 27 B/P (MAP) 130/73 147/77 Pulse Ox 90 89 O2 Delivery NIV CPAP NIV CPAP O2 Flow Rate 100.00 100.00 09/26/20 09/26/20 09/26/20 09/26/20 14:00 14:30 15:00 16:00 Pulse 80 87 82 80 Resp 38 30 37 40 B/P (MAP) 162/77 160/87 177/85 Pulse Ox 95 90 89 89 O2 Delivery NIV CPAP NIV CPAP NIV CPAP O2 Flow Rate 100.00 100.00 100.00 100.00 09/26/20 16:01 Temp 36.6 09/26/20 00:00 Intake Total 725 ml Output Total 2125 ml Balance -1400 ml Capillary Refill : Less Than 3 Seconds Constitutional: appears stated age, apparent distress, well-developed, well- nourished HEENT: PERRL; No discharge; hearing is well preserved, oral hygience is good; No ulceration, No xanthelasmas are seen Neck: No carotid bruit; carotid pulses are 2 + bilaterally Respiratory: accessory muscle use, respiratory distress Cardiovascular: regular rate-rhythm, S1 and S2 Gastrointestinal: distended; No spleenomegaly Rectal: deferred Extremities: normal range of motion, non-tender, normal inspection, pedal edema; No clubbing, No cyanosis, No significant edema Neurologic/Psychiatric: no motor/sensory deficits, alert, normal mood/affect, oriented x 3, power is 5/5 both on sides Skin: normal color, warm/dry, other (baseline psoriatic plaques) Data Review Labs Laboratory Tests 09/25/20 20:26: Glucometer 136H 09/26/20 02:10: White Blood Count 10.4, Red Blood Count 4.94, Hemoglobin 13.4, Hematocrit 41, Mean Corpuscular Volume 84, Mean Corpuscular Hemoglobin 27, Mean Corpuscular Hem oglobin Concent 32, Red Cell Distribution Width 14.7H, Platelet Count 194, Mean Platelet Volume 11.1, Immature Granulocyte % (Auto) 3, Neutrophils (%) (Auto) 89H, Lymphocytes (%) (Auto) 4L, Monocytes (%) (Auto) 4, Eosinophils (%) (Auto) 0, Basophils (%) (Auto) 0, Neutrophils # (Auto) 9.3H, Lymphocytes # (Auto) 0.4L, Monocytes # (Auto) 0.4, Eosinophils # (Auto) 0.0, Basophils # (Auto) 0.0, Yoko ture Granulocyte # (Auto) 0.3H, Neutrophils % (Manual) 92, Lymphocytes % (Manual) 2, Monocytes % (Manual) 3, Eosinophils % (Manual) 0, Basophils % (Manual) 0, Band Neutrophils 3, Blood Morphology Comment NORMAL, Sodium Level 136, Potassium Level 3.9, Chloride Level 101, Carbon Dioxide Level 20L, Anion Gap 15H, Blood Urea Nitrogen 17, Creatinine 0.91, Estimat Glomerular Filtration Rate > 60, BUN/Creatinine Ratio 19, Glucose Level 206H, Calcium Level 8.0L, Corrected Calcium 8.7, Phosphorus Level 3.0, Magnesium Level 1.9, Total Bilirubin 0.4, Aspartate Amino Transf (AST/SGOT) 38H, Alanine Aminotransferase (ALT/SGPT) 26, Alkaline Phosphatase 40, B-Type Natriuretic Peptide 32.4, Total Protein 6.8, Albumin 3.1L 09/26/20 02:20: Blood Gas Puncture Site LFT RAD, Blood Gas Patient Temperature 36.8, Arterial Blood pH 7.35L, Arterial Blood Partial Pressure CO2 41, Arterial Blood Partial Pressure O2 63L, Arterial Blood HCO3 22L, Arterial Blood Total CO2 23.7, Arterial Blood Oxygen Saturation 89L, Arterial Blood Base Excess -2.3, Rashad Test POS, Blood Gas Ventilator Setting NO, Blood Gas Inspired Oxygen 80% 09/26/20 04:25: Urine Color ORANGE, Urine Clarity CLEAR, Urine pH 6.0, Urine Specific [place] >=1.030, Urine Protein 2+H, Urine Glucose (UA) NEGATIVE, Urine Ketones 1+H, Urine Nitrite NEGATIVE, Urine Bilirubin 1+H, Urine Urobilinogen 1.0, Urine Le ukocyte Esterase NEGATIVE, Urine RBC (Auto) 3+H, Urine RBC >100H, Urine WBC NONE, Urine Crystals PRESENTH, Urine Amorphous Sediment FEW ANN URATESH, Urine Bacteria NEGATIVE, Urine Casts PRESENT, Urine Hyaline Casts 2-5H, Urine Coarse Granular Casts 2-5H, Urine Mucus NEGATIVE, Urine Culture Indicated NO, Lactic Acid Level 1.04 09/26/20 06:02: Glucometer 202H 09/26/20 08:20: Blood Gas Puncture Site R RAD, Blood Gas Patient Temperature 97.1, Arterial Blood pH 7.39, Arterial Blood Partial Pressure CO2 39, Arterial Blood Partial Pressure O2 61L, Arterial Blood HCO3 23, Arterial Blood Total CO2 24.3, Arterial Blood Oxygen Saturation 91L, Arterial Blood Base Excess -1.2, Rashad Test YES- POS, Blood Gas Ventilator Setting NO, Blood Gas Inspired Oxygen BIPAP 100% 09/26/20 11:14: Glucometer 178H 09/26/20 16:00: Glucometer 127H Microbiology 09/24/20 MRSA Screen - Final, Complete MRSA not isolated 09/24/20 Blood Culture - Preliminary, Resulted No growth ECG Impression ECG Comment Sinus rhythm with nonsustained ventricular tachycardia. A/P-Cardiology Assessment/Admission Diagnosis COVID pneumonia, Morbid obesity, Diabetes, Hypertension, Nonsustained ventricular tachycardia Plan COVID pneumonia, defer to the primary team. Morbid obesity, Diabetes, Hypertension, Nonsustained ventricular tachycardia, no further ectopy on beta blockers. Normal potassium and magnesium. 1 g of IV magnesia was given. We'll continue to follow clinically. Thank you for your consultation. Please call me if you have any questions. Giuliana Ornelas MD, FACP, FACC, FSCAI, FHRS, CCDS Interventional Cardiology Cardiac Electrophysiology Vascular Medicine and Endovascular Interventions Clinical Quality Measures DVT/VTE Risk/Contraindication: Risk Factor Score Per Nursin RFS Level Per Nursing on Admit: 4+=Very High Jeyson ORNELAS MD Sep 26, 2020 17:50
[2020-09-26] MEDS ORDERED: PROPOFOL DRIP (ICU) 100 ML IV ONE (18:20)
[2020-09-26] MEDS ORDERED: fentaNYL DRIP PRE-MIX 250 ML IV ONE (18:21)
--- NOTE | 2020-09-26 18:25 | NUR ---
TIMELINE NOTE: 182-PT called this RN to room to explain that he was getting tired, was struggling to breathe and was ready to be placed on the vent for low oxygen status and air hunger. This RN called EICU and received orders. 1829-Martin Bruno to room, pt set up for ventilator placement 183-20 mg of Atomidate given 183-50 mg of Rocc given 183-50 mg of rocc given 183-pt intubated with size 7.5 ETT 23 at the teeth, xray ordered 184-Propofol and Fentanyl drip started per EICU orders 184-OG placed at this time. Pt gema procedure well and continues to rest comfortably
[2020-09-26] MEDS ORDERED: ROCURONIUM 10 MG/ML 5 ML SYRINGE IV ONE (18:30)
[2020-09-26] MEDS ORDERED: PROPOFOL DRIP (ICU) 100 ML IV SCH (18:30)
[2020-09-26 18:59] VITALS: BP 175/82
--- NOTE | 2020-09-26 19:10 | NUR ---
Martin Bruno called this RN to state that the ET tube could be advanced 2.5 cm, this RN called RT to relay the message. RT stated that she would advance tube soon.
--- NOTE | 2020-09-26 19:17 | Diagnostic Imaging Report ---
INDICATION: Covid positive, intubation. TECHNIQUE: Single view chest 6:50 PM. CORRELATION STUDY: 09/26/2020. FINDINGS: Endotracheal tube has been placed, tip projects over the trachea below the thoracic inlet to just above the level of the clavicles. Gastric tube is also in place. While not well visualized, can only be traced into the lower chest. Right-sided central line is also limited in evaluation and appears to be over the high right atrium. Heart size and mediastinum are generally stable. Extensive five lobe consolidating infiltrate is again demonstrated, overall generally stable. IMPRESSION: 1. Interval intubation. Tip appears to be superimposed over the level of thoracic inlet just above the level of the clavicles. 2. Extensive five lobe consolidating infiltrate overall generally stable. 3. Gastric tube is also present, not well visualized. However, it can only be traced into the lower chest and is likely in the lower esophagus. Confirmed positioning into stomach cannot be made on this study. Dictated by: Dictated on workstation # [id number]
--- NOTE | 2020-09-26 19:34 | Progress Note ---
Progress Note Assessment/Plan Date Seen by Provider: Sep 26, 2020 Time Seen by Provider: 18:15 Events since last exam Called to ICU for intubation of this 89lb gentleman for respiratory distress while on Bipap. COVID positive. Given 20mg etomidate and 100mg rocuronium for RSI. Once bipap mask was taken off he desaturated quickly down to 40% SpO2. Intubated with 7.5cm ET tube 23.5cm at teeth. Initial vent settings Fio2 100%, rate 16, PEEP 24 (started at 12 and titrated up) Vt 520. Sats slowly pradeep over the next 10 minutes back up to 92%. CXR reviewd, order for RT to advance ET tube by 2.5-3.5 cm given to Lay MCMILLAN. OG tube could also be advanced at least 10- 15cm. Assessment/Plan as above Vitals Last set of Vitals Signs Vital Signs Date Time Temp Pulse Resp B/P (MAP) Pulse Ox O2 Delivery O2 Flow Rate FiO2 09/26/20 18:59 98 16 91 100 09/26/20 18:56 36.6 09/26/20 18:00 211/101 NIV CPAP 100.00 I&O I&O Intake and Output 09/26/20 00:00 Intake Total 2725 ml Output Total 2425 ml Balance 300 ml Intake Oral 1475 ml IV Total 1250 ml Output Urine Total 2425 ml Labs Laboratory Tests 09/25/20 20:26: Glucometer 136H 09/26/20 02:10: White Blood Count 10.4, Red Blood Count 4.94, Hemoglobin 13.4, Hematocrit 41, Mean Corpuscular Volume 84, Mean Corpuscular Hemoglobin 27, Mean Corpuscular Hemoglobin Concent 32, Red Cell Distribution Width 14.7H, Platelet Count 194, Mean Platelet Volume 11.1, Immature Granulocyte % (Auto) 3, Neutrophils (%) (Auto) 89H, Lymphocytes (%) (Auto) 4L, Monocytes (%) (Auto) 4, Eosinophils (%) (Auto) 0, Basophils (%) (Auto) 0, Neutrophils # (Auto) 9.3H, Lymphocytes # (Auto) 0.4L, Monocytes # (Auto) 0.4, Eosinophils # (Auto) 0.0, Basophils # (Auto) 0.0, Immature Granulocyte # (Auto) 0.3H, Neutrophils % (Manual) 92, Lymphocytes % (Manual) 2, Monocytes % (Manual) 3, Eosinophils % (Manual) 0, Basophils % (Manual) 0, Band Neutrophils 3, Blood Morphology Comment NORMAL, Sodium Level 136, Potassium Level 3.9, Chloride Level 101, Carbon Dioxide Level 20L, Anion Gap 15H, Blood Urea Nitrogen 17, Creatinine 0.91, Estimat Glomerular Filtration Rate > 60, BUN/Creatinine Ratio 19, Glucose Level 206H, Calcium Level 8.0L, Corrected Calcium 8.7, Phosphorus Level 3.0, Magnesium Level 1.9, Total Bilirubin 0.4, Aspartate Amino Transf (AST/SGOT) 38H, Alanine Aminotransferase (ALT/SGPT) 26, Alkaline Phosphatase 40, B-Type Natriuretic Peptide 32.4, Total Protein 6.8, Albumin 3.1L 09/26/20 02:20: Blood Gas Puncture Site LFT RAD, Blood Gas Patient Temperature 36.8, Arterial Blood pH 7.35L, Arterial Blood Partial Pressure CO2 41, Arterial Blood Partial Pressure O2 63L, Arterial Blood HCO3 22L, Arterial Blood Total CO2 23.7, Arterial Blood Oxygen Saturation 89L, Arterial Blood Base Excess -2.3, Rashad Test POS, Blood Gas Ventilator Setting NO, Blood Gas Inspired Oxygen 80% 09/26/20 04:25: Urine Color ORANGE, Urine Clarity CLEAR, Urine pH 6.0, Urine Specific [place] >=1.030, Urine Protein 2+H, Urine Glucose (UA) NEGATIVE, Urine Ketones 1+H, Urine Nitrite NEGATIVE, Urine Bilirubin 1+H, Urine Urobilinogen 1.0, Urine Leukocyte Esterase NEGATIVE, Urine RBC (Auto) 3+H, Urine RBC >100H, Urine WBC NONE, Urine Crystals PRESENTH, Urine Amorphous Sediment FEW ANN URATESH, Urine Bacteria NEGATIVE, Urine Casts PRESENT, Urine Hyaline Casts 2-5H, Urine Coarse Granular Casts 2-5H, Urine Mucus NEGATIVE, Urine Culture Indicated NO, Lactic Acid Level 1.04 09/26/20 06:02: Glucometer 202H 09/26/20 08:20: Blood Gas Puncture Site R RAD, Blood Gas Patient Temperature 97.1, Arterial Blood pH 7.39, Arterial Blood Partial Pressure CO2 39, Arterial Blood Partial Pressure O2 61L, Arterial Blood HCO3 23, Arterial Blood Total CO2 24.3, Arterial Blood Oxygen Saturation 91L, Arterial Blood Base Excess -1.2, Rashad Test YES- POS, Blood Gas Ventilator Setting NO, Blood Gas Inspired Oxygen BIPAP 100% 09/26/20 11:14: Glucometer 178H 09/26/20 16:00: Glucometer 127H Microbiology 09/24/20 MRSA Screen - Final, Complete MRSA not isolated 09/24/20 Blood Culture - Preliminary, Resulted No growth Focused Exam Lactate Level 09/24/20 22:45: Lactic Acid Level 1.35 09/25/20 04:53: Lactic Acid Level 0.98 09/26/20 04:25: Lactic Acid Level 1.04 Time of Focused Exam: 21:30 Clinical Quality Measures DVT/VTE Risk/Contraindication: Risk Factor Score Per Nursin RFS Level Per Nursing on Admit: 4+=Very High SAMPSON WEBER CRUISE DIRECTOR Sep 26, 2020 19:34
--- NOTE | 2020-09-26 19:40 | NUR ---
This RN called pt's mother to inform her of pt being intubated. This RN answered questions and informed her that we would be calling periodically to update her on pt status.
[2020-09-26] MEDS ORDERED: ROCURONIUM 50 MG/5 ML (ZEMURON) VIAL IV ONE (20:06)
[2020-09-26] MEDS ORDERED: ETOMIDATE IV SOLN 20 MG/10 ML VIAL IV ONE (20:06)
[2020-09-26] MEDS: PROPOFOL DRIP (ICU) 100 ML IV SCH ×2 (20:26→21:26)
[2020-09-26] MEDS: fentaNYL DRIP PRE-MIX 250 ML IV SCH (21:26)
[2020-09-26 23:30] VITALS: BP 128/67
[2020-09-27] MEDS: inSUlin ASPART (NovoLOG) 1 UNIT/0.01 ML (CHARGE PER UNIT) SC SCH ×5 (00:15→23:25)
[2020-09-27] MEDS: PROPOFOL DRIP (ICU) 100 ML IV SCH ×8 (00:16→21:50)
[2020-09-27] MEDS: EPINEPHrine 1 MG INJECTION 4 MG in NS (IVPB) 246 ML IV SCH ×8 (00:21→22:29)
[2020-09-27] MEDS: NOREPINEPHRINE 4 MG/250 ML 250 ML IV SCH ×8 (00:21→22:30)
[2020-09-27] MEDS: NS IV 1000 ML 1,000 ML IV SCH ×4 (00:32→23:16)
[2020-09-27 02:02] LABS: ABG BASE EXCESS -4.2 MMOL/L (-2.5-2.5); ABG OXYGEN SATURATION 76 % (94-100); ABG PO2 57 MMHG (79-93); ABG TCO2 26.2 MMOL/L (21.0-31.0)
[2020-09-27 02:09] LABS: ABG PCO2 77 MMHG (35-45); ABG PH 7.12 (7.37-7.43)
[2020-09-27 02:10] LABS: INSPIRED O2 100; PATIENT TEMP 37.5; VENTILATOR YES
[2020-09-27 02:12] LABS: BASOPHILS % (AUTO) 0 % (0-10); EOSINOPHILS # (AUTO) 0.1 10^3/uL (0.0-0.3); EOSINOPHILS % (AUTO) 1 % (0-10); HEMATOCRIT 44 % (40-54); HEMOGLOBIN 13.8 g/dL (13.3-17.7); LYMPHOCYTES # (AUTO) 0.5 10^3/uL (1.0-4.0); LYMPHOCYTES % (AUTO) 3 % (12-44); MEAN CORPUSCULAR HEMOGLOBIN 27 pg (25-34); MEAN CORPUSCULAR HGB CONC 31 g/dL (32-36); MEAN CORPUSCULAR VOLUME 88 fL (80-99); MONOCYTES # (AUTO) 0.6 10^3/uL (0.0-1.0); MONOCYTES % (AUTO) 3 % (0-12); NEUTROPHILS # (AUTO) 16.4 10^3/uL (1.8-7.8); NEUTROPHILS % (AUTO) 89 % (42-75); PLATELET COUNT 276 10^3/uL (130-400); POTASSIUM 5.4 MMOL/L (3.6-5.0); WHITE BLOOD COUNT 18.3 10^3/uL (4.3-11.0)
[2020-09-27 02:14] LABS: CALCIUM 7.9 MG/DL (8.5-10.1)
[2020-09-27 02:15] LABS: TOTAL PROTEIN 7.2 GM/DL (6.4-8.2)
[2020-09-27 02:17] LABS: BILIRUBIN,TOTAL 0.4 MG/DL (0.1-1.0)
[2020-09-27 02:18] LABS: PHOSPHORUS 6.4 MG/DL (2.3-4.7)
[2020-09-27 02:19] LABS: CREATININE SERUM 1.52 MG/DL (0.60-1.30)
[2020-09-27 02:22] LABS: MAGNESIUM 2.5 MG/DL (1.6-2.4)
[2020-09-27] MEDS: CISATRACURIUM INJECTION 100 MG in NS (IVPB) 200 ML IV SCH ×9 (02:58→22:30)
[2020-09-27 03:59] LABS: ABG BASE EXCESS -4.9 MMOL/L (-2.5-2.5); ABG OXYGEN SATURATION 93 % (94-100); ABG PO2 91 MMHG (79-93); ABG TCO2 25.4 MMOL/L (21.0-31.0)
[2020-09-27 04:00] LABS: INSPIRED O2 100; PATIENT TEMP 37.8; VENTILATOR YES
[2020-09-27 04:02] LABS: ABG PCO2 76 MMHG (35-45); ABG PH 7.12 (7.37-7.43)
[2020-09-27 05:03] VITALS: BP 128/67
[2020-09-27] MEDS: RT-ALBUTEROL INHALER HFA (VENTOLIN HFA) 18 GM IH SCH ×4 (05:03→19:11)
[2020-09-27] MEDS: KCL 20 MEQ TAB (K-DUR) PO SCH (05:39)
[2020-09-27] MEDS: POTASSIUM CL 10MEQ/50ML IVPB 50 ML IV SCH (05:39)
[2020-09-27] MEDS: fentaNYL DRIP PRE-MIX 250 ML IV SCH ×2 (05:41→10:42)
--- NOTE | 2020-09-27 05:41 | Diagnostic Imaging Report ---
Indication: Respiratory failure Portable chest 11:39 PM ET tube projects over the trachea. NG tube appears to enter the stomach. Right upper extremity PICC line tip projects over the SVC There are diffuse alveolar nodular infiltrates throughout both lungs. These are not significant change from the previous day. There are no effusions or pneumothoraces. IMPRESSION: Stable severe diffuse pulmonary infiltrates. Dictated by: Dictated on workstation # [id number]
[2020-09-27] MEDS ORDERED: NS IV 1000 ML 1,000 ML IV SCH ×2 (06:00→23:00)
[2020-09-27 06:25] LABS: ABG BASE EXCESS -4.3 MMOL/L (-2.5-2.5); ABG OXYGEN SATURATION 97 % (94-100); ABG PO2 126 MMHG (79-93); ABG TCO2 25.8 MMOL/L (21.0-31.0)
[2020-09-27 06:29] LABS: INSPIRED O2 100; PATIENT TEMP 37.7; VENTILATOR YES
[2020-09-27 06:32] LABS: ABG PCO2 75 MMHG (35-45); ABG PH 7.13 (7.37-7.43)
--- NOTE | 2020-09-27 07:01 | Occ Therapy Progress Note ---
Therapy Progress Note OT continues to monitor pt. Pt. continues on mechanical ventilation. Please send new OT orders when pt. medically stable and ready for skilled occupational therapy. Thank you for this referral. KACI PATEL Sep 27, 2020 07:01
[2020-09-27 08:20] VITALS: BP 113/57
[2020-09-27] MEDS: REMDESIVIR INJ 100 MG in NS (IVPB) 230 ML IV SCH (09:23)
[2020-09-27] MEDS: PANTOPRAZOLE 40 MG (PROTONIX) VIAL IV SCH (09:23)
[2020-09-27] MEDS: BENZONATATE 100 MG (TESSALON) CAPSULE PO SCH ×3 (09:23→20:40)
[2020-09-27] MEDS: ENOXAPARIN 60 MG/0.6 ML (LOVENOX) SYR SC SCH (09:23)
[2020-09-27] MEDS ORDERED: AMIODARONE 200 MG (CORDARONE) TAB ONE (09:53)
[2020-09-27] MEDS ORDERED: dilTIAZem120 MG (CARDIZEM CD) CAP PO ONE (09:53)
[2020-09-27 09:55] LABS: POTASSIUM 5.7 MMOL/L (3.6-5.0)
[2020-09-27 09:56] LABS: CALCIUM 7.4 MG/DL (8.5-10.1)
[2020-09-27 10:01] LABS: CREATININE SERUM 2.24 MG/DL (0.60-1.30)
--- NOTE | 2020-09-27 10:02 | Progress Note - Hospitalist ---
Subjective HPI/CC On Admission Date Seen by Provider: Sep 27, 2020 Time Seen by Provider: 09:54 Subjective/Events-last exam Pt is intubated and sedated. No concerns per RN. Focused Exam Lactate Level 09/24/20 22:45: Lactic Acid Level 1.35 09/25/20 04:53: Lactic Acid Level 0.98 09/26/20 04:25: Lactic Acid Level 1.04 Time of Focused Exam: 21:30 Objective Exam Vital Signs Vital Signs Date Time Temp Pulse Resp B/P (MAP) Pulse Ox O2 Delivery O2 Flow Rate FiO2 09/27/20 09:00 87 17 104/50 95 NIV CPAP 100.00 09/27/20 08:20 100 09/26/20 21:00 36.7 Capillary Refill : Less Than 3 Seconds General Appearance: Chronically ill, Obese, Other (intubated and sedated) Respiratory: Decreased Breath Sounds (difficulty auscultating due to habitus); No Rhonci; Other (on vent) Cardiovascular: Regular Rate, Rhythm, No Murmur Gastrointestinal: Normal Bowel Sounds, Non Tender, Soft Neurologic/Psychiatric: Alert, Oriented x3 Results/Procedures Lab Laboratory Tests 09/27/20 01:53 Patient resulted labs reviewed. Assessment/Plan Assessment and Plan Assess & Plan/Chief Complaint Acute respiratory failure with ARDS secondary to COVID COVID19 PNA with ARDS Pa02/Fi02 = 185 -Intubated overnight -TeleICU consulted for vent management - Remdesivir, and CVP -Decadron -Lovenox Episode of nonsustained VTach yesterday -Cardiology is consulted -Troponins are negative Hyponatremia- resolved Severe morbid obesity DM II -SSI HTN -Monitor GI/DVT ppx -Lovenox -Protonix Diagnosis/Problems Diagnosis/Problems (1) Severe acute respiratory syndrome coronavirus 2 (SARS-CoV-2) detected Status: Acute (2) Acute respiratory failure with hypoxemia Status: Acute Clinical Quality Measures DVT/VTE Risk/Contraindication: Risk Factor Score Per Nursin RFS Level Per Nursing on Admit: 4+=Very High MARIANELA KIMBALL MD Sep 27, 2020 10:02
--- NOTE | 2020-09-27 10:15 | Physical Therapy Progress Note ---
Therapy Progress Note PROM all extremities in supine. TAMARA BRUSH PT Sep 27, 2020 10:15
[2020-09-27] MEDS ORDERED: CALCIUM CHLORIDE 1 GM/10 ML (IMS) SYR IV ONE (11:15)
[2020-09-27] MEDS ORDERED: inSUlin (REGULAR) HUMAN 1 UNIT/0.01 ML (CHARGE PER UNIT) IV ONE (11:15)
[2020-09-27] MEDS ORDERED: DEXTROSE 50% 50 ML (IMS) SYR IV ONE (11:15)
[2020-09-27] MEDS ORDERED: SODIUM BICARB 8.4% 50 MEQ/50 ML (ABBOTT) SYR IV ONE (11:15)
[2020-09-27 11:42] VITALS: BP 96/50
[2020-09-27] MEDS ORDERED: SODIUM BICARB 8.4% 50 MEQ/50 ML VIAL ONE (12:12)
[2020-09-27] MEDS: LACTATED RINGERS 500 ML IV SCH ×3 (12:36→20:47)
--- NOTE | 2020-09-27 13:48 | Cardiology Progress Note ---
Cardiology SOAP Progress Note Subjective: no further ventricular ectopy. Objective: I&O/Vital Signs 09/27/20 09/27/20 09/27/20 09/27/20 02:00 03:00 04:00 05:00 Pulse 103 106 101 96 Resp 27 24 22 22 B/P (MAP) 129/65 121/57 125/63 130/59 Pulse Ox 92 94 88 93 O2 Delivery NIV CPAP NIV CPAP NIV CPAP NIV CPAP O2 Flow Rate 100.00 100.00 100.00 100.00 09/27/20 09/27/20 09/27/20 09/27/20 05:03 05:42 05:42 06:00 Pulse 101 95 94 96 Resp 25 22 B/P (MAP) 133/66 133/66 115/57 Pulse Ox 93 94 O2 Delivery Mechanical Ventilator O2 Flow Rate 100.00 FiO2 100 09/27/20 09/27/20 09/27/20 09/27/20 07:00 07:00 08:00 08:20 Pulse 92 93 92 89 Resp 19 15 29 B/P (MAP) 112/55 106/51 Pulse Ox 94 93 93 O2 Delivery Mechanical Ventilator Mechanical Ventilator O2 Flow Rate 100.00 100.00 FiO2 100 09/27/20 09/27/20 09/27/20 09/27/20 08:45 09:00 10:00 10:43 Temp 37.8 Pulse 87 87 87 Resp 17 14 B/P (MAP) 104/50 102/52 111/54 Pulse Ox 93 95 95 O2 Delivery Mechanical Ventilator Mechanical Ventilator Mechanical Ventilator O2 Flow Rate 100.00 100.00 FiO2 100 09/27/20 09/27/20 09/27/20 09/27/20 10:44 11:00 11:42 12:00 Temp 37.7 37.1 Pulse 87 85 80 82 Resp 14 28 13 B/P (MAP) 111/54 106/57 92/50 Pulse Ox 95 98 95 O2 Delivery Mechanical Ventilator Mechanical Ventilator O2 Flow Rate 100.00 100.00 FiO2 100 09/27/20 13:00 Pulse 79 09/27/20 00:00 Intake Total 650 ml Output Total 600 ml Balance 50 ml Constitutional: other (intubated/ventilated) Respiratory: other (intubated/ventilated.) Cardiovascular: regular rate-rhythm Gastrointestional: No spleenomegaly Extremities: pedal edema; No clubbing, No cyanosis, No significant edema Neurologic/Psychiatric: other (intubated/ventilated.) Skin: other (baseline psoriatic plaques) Results/Procedures: Labs Laboratory Tests 09/26/20 16:00: Glucometer 127H 09/26/20 23:19: Glucometer 231H 09/27/20 01:53: White Blood Count 18.3H, Red Blood Count 5.03, Hemoglobin 13.8, Hematocrit 44, Mean Corpuscular Volume 88, Mean Corpuscular Hemoglobin 27, Mean Corpuscular He moglobin Concent 31L, Red Cell Distribution Width 15.5H, Platelet Count 276, Mean Platelet Volume 11.0, Immature Granulocyte % (Auto) 4, Neutrophils (%) (Auto) 89H, Lymphocytes (%) (Auto) 3L, Monocytes (%) (Auto) 3, Eosinophils (%) (Auto) 1, Basophils (%) (Auto) 0, Neutrophils # (Auto) 16.4H, Lymphocytes # (Auto) 0.5L, Monocytes # (Auto) 0.6, Eosinophils # (Auto) 0.1, Basophils # (Auto) 0.0, Immature Granulocyte # (Auto) 0.7H, Blood Gas Puncture Site RIGHT RADIAL, Blood Gas Patient Temperature 37.5, Arterial Blood pH 7.12*L, Arterial Blood Partial Pressure CO2 77*H, Arterial Blood Partial Pressure O2 57L, Arterial Blood HCO3 24, Arterial Blood Total CO2 26.2, Arterial Blood Oxygen Saturation 76L, Arterial Blood Base Excess -4.2L, Rashad Test UNKNOWN, Blood Gas Ventilator Setting YES, Blood Gas Inspired Oxygen 100, Sodium Level 136, Potassium Level 5.4H, Chloride Level 101, Carbon Dioxide Level 19L, Anion Gap 16H, Blood Urea Nitrogen 22H, Creatinine 1.52H, Estimat Glomerular Filtration Rate 48, BUN/Creatinine Ratio 14, Glucose Level 258H, Calcium Level 7.9L, Corrected Calcium 8.7, Phosphorus Level 6.4H, Magnesium Level 2.5H, Total Bilirubin 0.4, Aspartate Amino Transf (AST/SGOT) 36H, Alanine Aminotransferase (ALT/SGPT) 27, Alkaline Phosphatase 68, Total Protein 7.2, Albumin 3.0L, Triglycerides Level 289H 09/27/20 03:25: D-Dimer 9.02H 09/27/20 03:28: Blood Gas Puncture Site LEFT RADIAL, Blood Gas Patient Temperature 37.8, Arterial Blood pH 7.12*L, Arterial Blood Partial Pressure CO2 76*H, Arterial Blood Partial Pressure O2 91, Arterial Blood HCO3 23, Arterial Blood Total CO2 25.4, Arterial Blood Oxygen Saturation 93L, Arterial Blood Base Excess -4.9L, Rashad Test UNKNOWN, Blood Gas Ventilator Setting YES, Blood Gas Inspired Oxygen 100 09/27/20 05:45: Glucometer 249H 09/27/20 06:05: Blood Gas Puncture Site LEFT RADIAL, Blood Gas Patient Temperature 37.7, Arterial Blood pH 7.13*L, Arterial Blood Partial Pressure CO2 75*H, Arterial Blood Partial Pressure O2 126H, Arterial Blood HCO3 24, Arterial Blood Total CO2 25.8, Arterial Blood Oxygen Saturation 97, Arterial Blood Base Excess -4.3L, Rashad Test UNKNOWN, Blood Gas Ventilator Setting YES, Blood Gas Inspired Oxygen 100 09/27/20 09:35: Sodium Level 136, Potassium Level 5.7H, Chloride Level 103, Carbon Dioxide Level 22, Anion Gap 11, Blood Urea Nitrogen 28H, Creatinine 2.24H, Estimat Glomerular Filtration Rate 31, BUN/Creatinine Ratio 13, Glucose Level 243H, Calcium Level 7.4L 09/27/20 11:38: Glucometer 212H Microbiology 09/24/20 MRSA Screen - Final, Complete MRSA not isolated 09/24/20 Blood Culture - Preliminary, Resulted No growth A/P: Assessment/Dx: COVID pneumonia, Morbid obesity, Diabetes, Hypertension, Nonsustained ventricular tachycardia Plan: COVID pneumonia, defer to the primary team. Morbid obesity, Diabetes, Hypertension, Nonsustained ventricular tachycardia, no further ectopy on beta blockers. Thank you for your consultation. Please call me if you have any questions. Giuliana Ornelas MD, FACP, FACC, FSCAI, FHRS, CCDS Interventional Cardiology Cardiac Electrophysiology Vascular Medicine and Endovascular Interventions Focused Exam Lactate Level 09/24/20 22:45: Lactic Acid Level 1.35 09/25/20 04:53: Lactic Acid Level 0.98 09/26/20 04:25: Lactic Acid Level 1.04 Time of Focused Exam: 21:30 Jeyson ORNELAS MD Sep 27, 2020 13:48
[2020-09-27] MEDS ORDERED: MIDAZOLAM DRIP PRE-MIX 100 ML IV SCH (14:30)
[2020-09-27 14:59] LABS: INR 1.3 (0.8-1.4); PROTHROMBIN TIME PATIENT 16.3 SEC (12.2-14.7)
--- NOTE | 2020-09-27 14:59 | NUR ---
During care rounds, it was noted that TF be initiated. Would recommend Pulmocare 1.5 kcal at rate of 15ml/hr with 25ml free water flushes q4h for hydration. Will continue to follow and reassess as pt needs, intake, and status change. Darren Daniels, MS RD LD [phone] (cell)
[2020-09-27 15:11] VITALS: BP 90/46
[2020-09-27] MEDS ORDERED: HEParin 1000 UNIT/ML (10ML VIAL) FOR BOLUS ONE ×2 (16:02→21:21)
[2020-09-27] MEDS: HEParin DRIP 25000 UNIT/500ML 500 ML IV SCH (16:26)
[2020-09-27 17:33] LABS: POTASSIUM 5.3 MMOL/L (3.6-5.0)
[2020-09-27 17:34] LABS: CALCIUM 7.7 MG/DL (8.5-10.1)
[2020-09-27 17:39] LABS: CREATININE SERUM 2.99 MG/DL (0.60-1.30)
--- NOTE | 2020-09-27 18:57 | NUR ---
SPOKE WITH PATIENTS MOTHER AND FATHER, UPDATED ON PATIENT CONDITION AND ANSWERED ALL QUESTIONS. ALSO NOTIFIED E-ICU REGARDING CONTINUED LOW URINE OUTPUT, SEE EMAR FOR ORDERS.
[2020-09-27] MEDS ORDERED: FUROSEMIDE 40 MG/4 ML INJ (LASIX) IVP NR (19:00)
[2020-09-27] MEDS ORDERED: ALBUMIN 25% 25 GM/100 ML 100 ML IV ONE (19:00)
[2020-09-27 19:11] VITALS: BP 90/46
[2020-09-27] MEDS: HEParin 1000 UNIT/ML (10ML VIAL) FOR BOLUS IV SCH (21:48)
[2020-09-27 22:50] VITALS: BP 100/54
[2020-09-28] MEDS: PROPOFOL DRIP (ICU) 100 ML IV SCH ×3 (00:58→08:11)
[2020-09-28 01:10] LABS: ABG BASE EXCESS -5.7 MMOL/L (-2.5-2.5); ABG OXYGEN SATURATION 90 % (94-100); ABG PCO2 63 MMHG (35-45); ABG PO2 77 MMHG (79-93); ABG TCO2 23.6 MMOL/L (21.0-31.0)
[2020-09-28 01:12] LABS: INSPIRED O2 75; PATIENT TEMP 37; VENTILATOR YES
[2020-09-28 01:14] LABS: ABG PH 7.17 (7.37-7.43)
[2020-09-28] MEDS: CISATRACURIUM INJECTION 100 MG in NS (IVPB) 200 ML IV SCH ×5 (01:19→11:35)
[2020-09-28] MEDS: EPINEPHrine 1 MG INJECTION 4 MG in NS (IVPB) 246 ML IV SCH ×4 (01:19→11:35)
[2020-09-28] MEDS: NOREPINEPHRINE 4 MG/250 ML 250 ML IV SCH ×4 (01:20→11:35)
[2020-09-28 01:55] VITALS: BP 115/54
[2020-09-28] MEDS: RT-ALBUTEROL INHALER HFA (VENTOLIN HFA) 18 GM IH SCH ×2 (01:55→09:45)
[2020-09-28 04:00] LABS: BASOPHILS % (AUTO) 0 % (0-10); EOSINOPHILS % (AUTO) 0 % (0-10); HEMATOCRIT 37 % (40-54); HEMOGLOBIN 11.2 g/dL (13.3-17.7); LYMPHOCYTES # (AUTO) 0.3 10^3/uL (1.0-4.0); LYMPHOCYTES % (AUTO) 4 % (12-44); MEAN CORPUSCULAR HEMOGLOBIN 27 pg (25-34); MEAN CORPUSCULAR HGB CONC 30 g/dL (32-36); MEAN CORPUSCULAR VOLUME 89 fL (80-99); MEAN PLATELET VOLUME 10.9 fL (9.0-12.2); MONOCYTES # (AUTO) 0.3 10^3/uL (0.0-1.0); MONOCYTES % (AUTO) 3 % (0-12); NEUTROPHILS # (AUTO) 7.7 10^3/uL (1.8-7.8); NEUTROPHILS % (AUTO) 90 % (42-75); PLATELET COUNT 197 10^3/uL (130-400); WHITE BLOOD COUNT 8.6 10^3/uL (4.3-11.0)
[2020-09-28] MEDS: LACTATED RINGERS 500 ML IV SCH ×3 (04:09→12:51)
[2020-09-28 04:13] LABS: ALBUMIN 2.9 GM/DL (3.2-4.5); POTASSIUM 5.4 MMOL/L (3.6-5.0)
[2020-09-28 04:14] LABS: CALCIUM 7.6 MG/DL (8.5-10.1)
[2020-09-28 04:15] LABS: TOTAL PROTEIN 6.5 GM/DL (6.4-8.2)
[2020-09-28 04:17] LABS: BILIRUBIN,TOTAL 0.3 MG/DL (0.1-1.0)
[2020-09-28 04:19] LABS: CREATININE SERUM 3.99 MG/DL (0.60-1.30); PHOSPHORUS 6.4 MG/DL (2.3-4.7)
[2020-09-28 04:22] LABS: MAGNESIUM 2.8 MG/DL (1.6-2.4)
[2020-09-28] MEDS ORDERED: HEParin 1000 UNIT/ML (10ML VIAL) FOR BOLUS IV SCH (05:15)
--- NOTE | 2020-09-28 05:30 | NUR ---
Discussed with Dr. Burris patient's low output this morning as well as lab levels. Dr. Burris informs that this RN that patient needs nephrology. Dr. James will be informed of EICU recommendations due to patient's increase in creatinine and low urine output.
[2020-09-28] MEDS: POTASSIUM CL 10MEQ/50ML IVPB 50 ML IV SCH (05:49)
[2020-09-28] MEDS: NS IV 1000 ML 1,000 ML IV SCH ×2 (05:49→08:10)
[2020-09-28] MEDS: KCL 20 MEQ TAB (K-DUR) PO SCH (05:50)
[2020-09-28] MEDS: MAGNESIUM 1 GM/100 ML IVPB 100 ML IV SCH (05:50)
[2020-09-28] MEDS: inSUlin ASPART (NovoLOG) 1 UNIT/0.01 ML (CHARGE PER UNIT) SC SCH ×2 (06:00→12:49)
[2020-09-28] MEDS: REMDESIVIR INJ 100 MG in NS (IVPB) 230 ML IV SCH (08:08)
[2020-09-28] MEDS: HEParin DRIP 25000 UNIT/500ML 500 ML IV SCH (08:09)
[2020-09-28] MEDS: fentaNYL DRIP PRE-MIX 250 ML IV SCH (08:10)
[2020-09-28 08:11] VITALS: BP 150/75
[2020-09-28] MEDS: PANTOPRAZOLE 40 MG (PROTONIX) VIAL IV SCH (08:11)
[2020-09-28] MEDS: BENZONATATE 100 MG (TESSALON) CAPSULE PO SCH (09:18)
--- NOTE | 2020-09-28 10:22 | NUR ---
SPOKE WITH ARNOLD FROM TRANSFER CENTER. UPDATED WITH ALL INFORMATION REQUESTED. ADVISED THAT HE IS WORKING ON GETTING PATIENT ACCEPTED TO ICU AND WILL CALL WITH UPDATE.
--- NOTE | 2020-09-28 11:53 | Physical Therapy Progress Note ---
Therapy Progress Note Pt remains intubated and sedated this date. Will continue to follow and initiate therapy when medically appropriate. TEDDY PAIGE PT Sep 28, 2020 11:53
[2020-09-28 11:59] LABS: CALCIUM 7.8 MG/DL (8.5-10.1); CREATININE SERUM 4.64 MG/DL (0.60-1.30); POTASSIUM 5.7 MMOL/L (3.6-5.0)
--- NOTE | 2020-09-28 12:49 | Discharge Summary ---
Diagnosis/Chief Complaint Date of Admission Sep 24, 2020 at 20:30 Date of Discharge Discharge Date: Sep 28, 2020 Primary Care Jorge Dixon MD Discharge Diagnosis (1) Severe acute respiratory syndrome coronavirus 2 (SARS-CoV-2) detected Status: Acute (2) Acute respiratory failure with hypoxemia Status: Acute Discharge Summary Procedures/Consulations Dr Sorto- Pulm Dr Ornelas- Cardiology Discharge Physical Exam Allergies: Coded Allergies: No Known Drug Allergies (Unverified , 08/09/09) Vitals & I&Os Vital Signs Date Time Temp Pulse Resp B/P (MAP) Pulse Ox O2 Delivery O2 Flow Rate FiO2 09/28/20 11:15 97 28 92 80 09/28/20 11:00 37.7 137/58 Mechanical Ventilator 75.00 General Appearance: Chronically ill, Obese, Other (sedated, on vent) HEENT: Other (OGT, ETT in place) Respiratory: Other (on vent, decreased breath sounds, PEEP 16 Fi02 75%) Cardiovascular: Regular Rate, Rhythm, No Murmur Gastrointestinal: Normal Bowel Sounds, Non Tender, Soft Neurologic/Psychiatric: Other (sedated, appears comfortable) Hospital Course Pt was admitted on 09/24 due to acute respiratory failure from COVID19. he was maintained on Vapotherm and BiP but ultimately required mechanical ventilation on September 26. He was treated with Remdesivir, convalescent plasma, and Decadron. Unfortunately he developed acute renal failure with a creatinine rising from 1.14 on admission to 4.64. He was nearly anuric as well. I discussed the situation with his mother who agreed to transfer. Both Dionne and Lissa in [place] around ICU diversion. I was able to secure a bed at [facility]. Dr. Durham graciously accepted patient in transfer. He was transferred via EMS for nephrology evaluation and potential HD. Labs (last 24 hrs) Laboratory Tests 09/27/20 14:35: Prothrombin Time 16.3H, INR Comment 1.3, Activated Partial Thromboplast Time 37H 09/27/20 17:15: Sodium Level 138, Potassium Level 5.3H, Chloride Level 104, Carbon Dioxide Level 21, Anion Gap 13, Blood Urea Nitrogen 33H, Creatinine 2.99#H, Estimat Glomerular Filtration Rate 22, BUN/Creatinine Ratio 11, Glucose Level 189H, Calcium Level 7.7L 09/27/20 20:31: Activated Partial Thromboplast Time 48H 09/27/20 23:10: Glucometer 194H 09/28/20 00:55: Blood Gas Puncture Site LEFT RADIAL, Blood Gas Patient Temperature 37, Arterial Blood pH 7.17*L, Arterial Blood Partial Pressure CO2 63H, Arterial Blood Partial Pressure O2 77L, Arterial Blood HCO3 22L, Arterial Blood Total CO2 23.6, Arterial Blood Oxygen Saturation 90L, Arterial Blood Base Excess -5.7L, Rashad Test UNKNOWN, Blood Gas Ventilator Setting YES, Blood Gas Inspired Oxygen 75 09/28/20 03:47: White Blood Count 8.6, Red Blood Count 4.17L, Hemoglobin 11.2L, Hematocrit 37L, Mean Corpuscular Volume 89, Mean Corpuscular Hemoglobin 27, Mean Corpuscular Hem oglobin Concent 30L, Red Cell Distribution Width 16.1H, Platelet Count 197, Mean Platelet Volume 10.9, Immature Granulocyte % (Auto) 3, Neutrophils (%) (Auto) 90H, Lymphocytes (%) (Auto) 4L, Monocytes (%) (Auto) 3, Eosinophils (%) (Auto) 0, Basophils (%) (Auto) 0, Neutrophils # (Auto) 7.7, Lymphocytes # (Auto) 0.3L, Monocytes # (Auto) 0.3, Eosinophils # (Auto) 0.0, Basophils # (Auto) 0.0, Immature Granulocyte # (Auto) 0.3H, Activated Partial Thromboplast Time 54H, Sodium Level 139, Potassium Level 5.4H, Chloride Level 105, Carbon Dioxide Level 18L, Anion Gap 16H, Blood Urea Nitrogen 41H, Creatinine 3.99#H, Estimat Glomerular Filtration Rate 16, BUN/Creatinine Ratio 10, Glucose Level 253H, Calcium Level 7.6L, Corrected Calcium 8.5, Phosphorus Level 6.4H, Magnesium Level 2.8H, Total Bilirubin 0.3, Aspartate Amino Transf (AST/SGOT) 38H, Alanine Aminotransferase (ALT/SGPT) 21, Alkaline Phosphatase 50, Total Protein 6.5, Albumin 2.9L 09/28/20 11:30: Activated Partial Thromboplast Time 52H, Sodium Level 139, Potassium Level 5.7H, Chloride Level 105, Carbon Dioxide Level 18L, Anion Gap 16H, Blood Urea Nitrogen 48H, Creatinine 4.64#H, Estimat Glomerular Filtration Rate 13, BUN/Creatinine Ratio 10, Glucose Level 224H, Calcium Level 7.8L 09/28/20 11:44: Glucometer 188H Microbiology 09/26/20 Blood Culture - Preliminary, Resulted No growth 09/24/20 MRSA Screen - Final, Complete MRSA not isolated Patient resulted labs reviewed. Pending Labs Laboratory Tests 09/28/20 11:30: Activated Partial Thromboplast Time 52, Sodium Level 139, Potassium Level 5.7, Chloride Level 105, Carbon Dioxide Level 18, Anion Gap 16, Blood Urea Nitrogen 48, Creatinine 4.64, Estimat Glomerular Filtration Rate 13, BUN/Creatinine Ratio 10, Glucose Level 224, Calcium Level 7.8 09/28/20 11:44: Glucometer 188 Discussion & Recommendations Discharge Planning: >30 minutes discharge planning Discharge Home Medications: Active Scripts Active Reported Tylenol Extra Strength (Acetaminophen) 500 Mg Tablet 1,000 Mg PO Q8H PRN Metformin HCl 1,000 Mg Tablet 1,000 Mg PO BID Amlodipine Besylate 5 Mg Tablet 5 Mg PO DAILY Lisinopril-Hctz 20-12.5 mg Tab (Lisinopril/Hydrochlorothiazide) 1 Each Tablet 2 Ea PO DAILY TAKES 2 (20/12.5MG)TABS Glipizide 5 Mg Tablet 5 Mg PO DAILY Instructions to patient/family Please see electronic discharge instructions given to patient. Clinical Quality Measures DVT/VTE Risk/Contraindication: Risk Factor Score Per Nursin RFS Level Per Nursing on Admit: 4+=Very High Copy Copies To 1: JORGE DIXON MD, KATELYN M MD Sep 28, 2020 12:49
[2020-09-28] MEDS: HEParin 1000 UNIT/ML (10ML VIAL) FOR BOLUS IV SCH (12:50)
--- NOTE | 2020-09-28 12:55 | NUR ---
PT WILL GO TO [facility] ROOM [id number]. REPORT CALLED TO HIPOLITO MCMAHON AT [phone]. [facility] NOTIFIED AND WILL TRANSPORT PATIENT. BOTH [facility] AND [facility] NOTIFIED AND GIVEN INFORMATION REGARDING TRANSPORT. NUMBER TO CALL FOR FAMILY IS [phone]. FAMILY PASSCODE FOR [facility] IS [phone]. THIS INFORMATION GIVEN TO FAMILY.
--- NOTE | 2020-09-28 13:45 | NUR ---
PATIENT DISCHARGED WITH ALL PERSONAL BELONGINGS VIA [facility]. FAMILY [facility]WARE AND [facility] NOTIFIED OF DEPARTURE.
== END 2020-09-28 13:45 | disposition short-term general hospital (02) | DRG 208 ==
LOC: EDUNIT# 19:44 → ER 19:47 → EDLOC 20:30 → ICU 20:30 → CSD 09-25 08:16 → ICU 09-25 20:24
PROVIDERS: ADMIT Internal Medicine; ATTEND Internal Medicine
PROC: 5A09357 Assistance with Respiratory Ventilation, Less than 24 Consecutive Hours, Continuous Positive Airway Pressure (ICD-10-PCS; 2020-09-25)
PROC: XW033E5 Introduction of Remdesivir Anti-infective into Peripheral Vein, Percutaneous Approach, New Technology Group 5 (ICD-10-PCS; 2020-09-25)
PROC: XW13325 Transfusion of Convalescent Plasma (Nonautologous) into Peripheral Vein, Percutaneous Approach, New Technology Group 5 (ICD-10-PCS; 2020-09-25)
PROC: 5A1945Z Respiratory Ventilation, 24-96 Consecutive Hours (ICD-10-PCS; principal; 2020-09-26)
PROC: 0BH17EZ Insertion of Endotracheal Airway into Trachea, Via Natural or Artificial Opening (ICD-10-PCS; 2020-09-26)
DX: U07.1 COVID-19 (principal); J80 Acute respiratory distress syndrome; J12.89 Other viral pneumonia; E87.1 Hypo-osmolality and hyponatremia; Z68.44 Body mass index [BMI] 60.0-69.9, adult; I47.2 Ventricular tachycardia; N17.9 Acute kidney failure, unspecified; I10 Essential (primary) hypertension; E11.9 Type 2 diabetes mellitus without complications; Z79.84 Long term (current) use of oral hypoglycemic drugs; E66.01 Morbid (severe) obesity due to excess calories; R19.7 Diarrhea, unspecified; Z73.0 Burn-out
CPT/HCPCS: 36415; 36569; 71045; 76937; 80048; 80053; 81000; 82805; 82962; 83605; 83735; 83880; 84100; 84145; 84478; 84484; 85007; 85025; 85027; 85379; 85610; 85730; 86141; 86900; 86901; 87040; 87081; 87804; 93005; 94002; 94003; 94640; 94660; 94799; 96361; 96374; 99291